=== PATIENT | male | born 1970 | race Caucasian/White ===

== ENCOUNTER 2016-06-21 21:17 | Inpatient (IN) | payer BC ==
[~2016-06-21] VITALS: Ht 175.3 cm; Wt 83.0 kg
[2016-06-21 22:08] LABS: BASOPHIL % 0.3 % (0-2); PLATELET COUNT 225 x10^3mcL (130-400); RED CELL DISTRIBUTION WIDTH 13.3 % (11.5-14.5)
[2016-06-21 22:27] LABS: CALCIUM 8.9 mg/dL (8.5-10.1); CARBON DIOXIDE 27.5 mmol/L (21-32); CHLORIDE SERUM 103 mmol/L (98-107); CREATININE SERUM 1.1 mg/dL (0.7-1.3); GFR1 > 60 mL/min; GLUCOSE SERUM 93 mg/dL (74-106); POTASSIUM SERUM 3.5 mmol/L (3.5-5.1); SODIUM SERUM 140 mmol/L (136-145)
[2016-06-21 22:29] LABS: ALBUMIN 4.4 g/dL (3.4-5.0); ALKALINE PHOSPHATASE 77 U/L (46-116); ALT/SGPT 27 U/L (16-63); AST/SGOT 22 U/L (15-37); BILIRUBIN TOTAL 0.53 mg/dL (0.20-1.00); TOTAL PROTEIN, SERUM 7.6 g/dL (6.4-8.2)
[2016-06-21 22:44] LABS: CREATINE KINASE 66 U/L (39-308)
[2016-06-21 22:46] LABS: CK-MB < 0.5 ng/mL (0-3.6)
[2016-06-21] MEDS ORDERED: XANAX0.5 MG PO (22:52)
[2016-06-22] VITALS (7 sets, daily range): BP systolic 102–133; BP diastolic 60–91
[2016-06-22 00:30] LABS: T3 TOTAL 1.38 ng/mL
[2016-06-22 01:03] LABS: FREE T4 1.08 ng/dL (0.76-1.46); FREE THYROXINE INDEX 2.6 ug/dL (1.4-4.5); T4(THYROXINE) 8.5 ug/dL (4.7-13.3)
[2016-06-22 01:45] LABS: CHOLESTEROL/HDL RATIO 3.7; MAGNESIUM 1.9 mg/dL (1.8-2.4)
[2016-06-22 15:10] LABS: microscopic required? NO
[2016-06-22 15:25] LABS: urine erythrocyte NEGATIVE (NEGATIVE)
[2016-06-22 16:33] LABS: AMPHETAMINE QUAL UR NONE DETECTED (NEG <=1000)
[2016-06-23 06:00] VITALS: BP 106/58
[2016-06-23 09:32] VITALS: BP 102/63
[2016-06-23 11:32] LABS: BASOPHIL % 0.3 % (0-2); PLATELET COUNT 190 x10^3mcL (130-400); RED CELL DISTRIBUTION WIDTH 13.1 % (11.5-14.5)
[2016-06-23 11:58] LABS: CALCIUM 8.7 mg/dL (8.5-10.1); CARBON DIOXIDE 30.5 mmol/L (21-32); CHLORIDE SERUM 109 mmol/L (98-107); CREATININE SERUM 0.9 mg/dL (0.7-1.3); GFR1 > 60 mL/min; GLUCOSE SERUM 89 mg/dL (74-106); PHOSPHOROUS 3.4 mg/dL (2.5-4.9); POTASSIUM SERUM 4.2 mmol/L (3.5-5.1); SODIUM SERUM 143 mmol/L (136-145)
[2016-06-23 14:34] LABS: MAGNESIUM 1.8 mg/dL (1.8-2.4)
[2016-06-23 15:30] VITALS: BP 106/64
[2016-06-23 17:32] VITALS: BP 101/57
[2016-06-23 22:31] VITALS: BP 104/62
[2016-06-24 06:46] LABS: CALCIUM 8.5 mg/dL (8.5-10.1); CARBON DIOXIDE 27.4 mmol/L (21-32); CHLORIDE SERUM 108 mmol/L (98-107); GFR1 > 60 mL/min; GLUCOSE SERUM 90 mg/dL (74-106); MAGNESIUM 1.8 mg/dL (1.8-2.4); PHOSPHOROUS 3.8 mg/dL (2.5-4.9); POTASSIUM SERUM 3.9 mmol/L (3.5-5.1); SODIUM SERUM 143 mmol/L (136-145)
[2016-06-24 06:56] LABS: BASOPHIL % 1.6 % (0-2); PLATELET COUNT 181 x10^3mcL (130-400); RED CELL DISTRIBUTION WIDTH 12.5 % (11.5-14.5)
[2016-06-24 07:08] VITALS: BP 113/71
[2016-06-24] MEDS ORDERED: ZES10 PO (09:47)
[2016-06-24] MEDS ORDERED: CEL20 PO (09:48)
[2016-06-24] MEDS ORDERED: MIN1 PO (09:48)
[2016-06-24] MEDS ORDERED: BACO TOP (09:48)
[2016-06-24] MEDS ORDERED: HIBICLENS118 ML TOP (09:48)
[2016-06-24] MEDS ORDERED: PRI20 PO (09:49)
[2016-06-24 10:00] VITALS: BP 119/74
[2016-06-24 10:49] VITALS: BP 119/74
== END 2016-06-24 11:34 | disposition home or self-care (01) | DRG 392 ==
LOC: ED 21:17 → MU 23:40 → DU 23:40 → MU 06-23 05:24
PROVIDERS: Emergency Medicine; Family Medicine; Internal Medicine Gastroenterology; ADMIT Family Medicine
PROC: 0DB68ZX Excision of Stomach, Via Natural or Artificial Opening Endoscopic, Diagnostic (ICD-10-PCS; principal; 2016-06-23 14:00)
PROC: 0DB58ZX Excision of Esophagus, Via Natural or Artificial Opening Endoscopic, Diagnostic (ICD-10-PCS; 2016-06-23 14:00)
DX: K21.9 Gastro-esophageal reflux disease without esophagitis (principal); E11.65 Type 2 diabetes mellitus with hyperglycemia; E11.51 Type 2 diabetes mellitus with diabetic peripheral angiopathy without gangrene; E78.5 Hyperlipidemia, unspecified; M94.0 Chondrocostal junction syndrome [Tietze]; F43.10 Post-traumatic stress disorder, unspecified; I10 Essential (primary) hypertension; Z53.29 Procedure and treatment not carried out because of patient's decision for other reasons; K29.70 Gastritis, unspecified, without bleeding; K44.9 Diaphragmatic hernia without obstruction or gangrene; Z22.322 Carrier or suspected carrier of Methicillin resistant Staphylococcus aureus; Z79.899 Other long term (current) drug therapy; Z87.820 Personal history of traumatic brain injury; Z88.1 Allergy status to other antibiotic agents
CPT/HCPCS: 43235; 80307; 83880; 84439; 90658; J1200; J1610; J2060; J2250; J2270; J2310; J3010; J3490; J7030; Q0092; Q0162

== ENCOUNTER 2018-10-30 14:54 | Inpatient (IN) | payer BC ==
[~2018-10-30] VITALS: Ht 175.3 cm; Wt 91.6 kg
[~2018-10-30 14:54] MED LIST: BACO TOP; CEL20 PO; HIBICLENS118 ML TOP; MIN1 PO; PRI20 PO; XANAX0.5 MG PO; ZES10 PO
[2018-10-30 14:58] VITALS: Ht 175.3 cm; Wt 91.6 kg
--- NOTE | 2018-10-30 15:01 | NUR ---
EKG IN PROGRESS.
--- NOTE | 2018-10-30 16:35 | NUR ---
DR KIM AT BEDSIDE FOR EVAL AT THIS TIME, APR RN AT BEDSIDE INFRASTRUCTURE SECURITY ARCHITECT.//APR RN
[2018-10-30 16:44] LABS: BASOPHIL % 0.5 % (0-2); PLATELET COUNT 222 x10^3mcL (130-400); RED CELL DISTRIBUTION WIDTH 13.7 % (11.5-14.5)
[2018-10-30 17:01] LABS: CALCIUM 9.7 mg/dL (8.5-10.1); CARBON DIOXIDE 31.6 mmol/L (21-32); CHLORIDE SERUM 107 mmol/L (98-107); CREATININE SERUM 0.9 mg/dL (0.7-1.3); GFR1 > 60 mL/min; GLUCOSE SERUM 95 mg/dL (74-106); POTASSIUM SERUM 4.3 mmol/L (3.5-5.1); SODIUM SERUM 144 mmol/L (136-145)
--- NOTE | 2018-10-30 17:01 | NUR ---
NITRO S/L EFFECTIVE AFTER 2 0.4MG. @1644 AND 1656. PT REPORTS CHEST PAIN 05/14. WILL CONTINUE TO MONITOR
[2018-10-30 17:06] LABS: ALBUMIN 3.9 g/dL (3.4-5.0); ALKALINE PHOSPHATASE 82 U/L (46-116); ALT/SGPT 37 U/L (16-63); AST/SGOT 20 U/L (15-37); BILIRUBIN TOTAL 0.2 mg/dL (0.20-1.00); CHOLESTEROL 172 mg/dL (<200); CHOLESTEROL/HDL RATIO 4.9; HDL CHOLESTEROL 35 mg/dL (40-60); LIPASE 147 IU/L (73-393); TOTAL PROTEIN, SERUM 7.1 g/dL (6.4-8.2)
[2018-10-30 17:07] LABS: TRIGLYCERIDES 206 mg/dL (<150)
[2018-10-30 17:08] LABS: FREE T4 0.69 ng/dL (0.76-1.46); FREE THYROXINE INDEX 1.8 ug/dL (1.4-4.5); T4(THYROXINE) 5.7 ug/dL (4.7-13.3)
[2018-10-30 17:41] LABS: microscopic required? NO
[2018-10-30 17:50] LABS: T3 TOTAL 1.09 ng/mL
[2018-10-30 17:58] LABS: UA SPECIFIC GRAVITY 1.015 (1.005-1.035); urine erythrocyte NEGATIVE (NEGATIVE)
--- NOTE | 2018-10-30 19:00 | NUR ---
3RD 0.4MG S/L NITRO EFFECTIVE.
--- NOTE | 2018-10-30 19:13 | NUR ---
REPORT GIVEN TO TRISTAN AVILA.
--- NOTE | 2018-10-30 19:14 | NUR ---
RECEIVED REPORT FROM DAY SHIFT NURSERAJENDRA. PATIENT IS AAOX4. APPEARS PALE IN COLOR, SKIN IS WARM AND DRY. STATES CHEST PAIN IS 2/10 MID STERNAL, RELIEF FROM 6/10 AFTER 3RD DOSE OF NITRO PER DAY SHIFT NURSE. PATIENT INSTRUCTED TO NOTIFY SOON POSSIBLE IF CHEST PAIN WORSENS. WILL CONTINUE TO MONITOR CLOSELY.
[2018-10-30] MEDS ORDERED: ZESTRIL20 MG PO (19:54)
--- NOTE | 2018-10-30 19:54 | NUR ---
TECH AT BEDSIDE TO COMPLETE EKG.
[2018-10-30] MEDS ORDERED: HYDROXYZINE50 M1 PO (19:55)
[2018-10-30 20:49] LABS: AMPHETAMINE QUAL UR NONE DETECTED (See below)
--- NOTE | 2018-10-30 21:29 | NUR ---
REPORT CALLED AND GIVEN TO AUSTIN GRANADOS ON MST.
[2018-10-30 22:05] VITALS: BP 116/69
--- NOTE | 2018-10-30 22:13 | NUR ---
RECEIVED PT FROM ER, PT ADMIT FOR CHEST PAIN, PT IS A/O X4, VERBAL RESPONSIVE, ABLE TO TELL WHAT HE NEEDS. LUNG SOUND CLEAR BILATERAL, NO COUGH, C/O MILD SOB PT IS ON 2L/MIN O2 VIA NC, PO2 96%, PT IS ON TELE 29, NSR, C/O MILD CHEST PAIN 2/10, RADIATE TO BACK AND JAW. BOWEL SOUND PRESENT ALL 4 QUADRANTS, NO DISTENTION, NO TENDER. PEDAL PULSE PRESENT BOTH FEET, NO EDEMA, IV AT RIGHT AC, NO LEAKING, NO INFILTRATION. ALL ADLS ASSIST, ALL NEED MET, CALL LIGHT IN REACH, WILL CONTINUE TO MONITOR.
--- NOTE | 2018-10-31 00:15 | NUR ---
PT REQUESTING BLANKET, DENIES PAIN AT THIS TIME, PT DENIES SOB, ON 2L NC, PT A/OX4 NO COMPLAINTS OF PARRISH OR DIZZINESS, SAFETY PRECAUTIONS IN PLACE, WILL CONTINUE TO MONITOR
--- NOTE | 2018-10-31 02:00 | NUR ---
PT RESTING WITH EYES CLOSED, NO ACUTE DISTRESS NOTED, NO SOB, RESPIRATIONS EVEN AND UNLABORED, SAFETY PRECAUTIONS IN PLACE, WILL CONTINUE TO MONITOR
--- NOTE | 2018-10-31 05:26 | NUR ---
PT RESTED COMFORTABLY THROUGH MOST OF THE NIGHT, PT DENIED CHEST PAIN SINCE ADMISSIOPN TO THE FLOOR, PT DENIED SOB BUT IS ON 2L NC FOR COMFORT, SAFETY PRECAUTIONS WERE MAINTAINED THROUGH SHIFT, ALL NEEDS ATTENDED TO WILL CONTINUE TO MONITOR AND ENDORSE CARE
[2018-10-31 05:44] VITALS: BP 103/62
[2018-10-31 07:06] LABS: CARBON DIOXIDE 28.7 mmol/L (21-32); CHLORIDE SERUM 109 mmol/L (98-107); GFR1 > 60 mL/min; GLUCOSE SERUM 101 mg/dL (74-106); POTASSIUM SERUM 4.1 mmol/L (3.5-5.1); SODIUM SERUM 145 mmol/L (136-145)
--- NOTE | 2018-10-31 07:15 | NUR ---
RECEIVED BEDSIDE REPORT FROM SHAMPOO ASSISTANT NURSE AT THIS TIME. PATIENT RESTING COMFORTABLY IN BED. NO APPARENT DISTRESS OR DISCOMFORT NOTED. 2L NC IN PLACE FOR COMFORT AND PATIENT TOLERATING WELL. BREATHING EVEN AND UNLABORED. NO RESPIRATORY DISTRESS NOTED. NO INDICATION OF CHEST PAIN AT THIS TIME. IV PATENT AND INTACT. ALL QUESTIONS AND CONCERNS ADDRESSED. ALL NEEDS ATTENDED TO. WILL CONTINUE TO MONITOR
[2018-10-31 07:48] LABS: BASOPHIL % 0.7 % (0-2); PLATELET COUNT 195 x10^3mcL (130-400); RED CELL DISTRIBUTION WIDTH 13.3 % (11.5-14.5)
[2018-10-31 10:15] VITALS: BP 104/71
--- NOTE | 2018-10-31 10:20 | NUR ---
ALL MORNING MEDICATIONS ADMINISTERED AT THIS TIME. PATIENT TOLERATED MEDICATIONS WELL. NO ADVERSE EFFECTS NOTED. ALL NEEDS ATTENDED TO. WILL CONTINUE TO MONITOR
--- NOTE | 2018-10-31 11:41 | NUR ---
PATIENT C/O 3/10 SHARP CHEST PAIN AT THIS TIME. MEDICATED WITH NORCO PRN. PATIENT TOLERATED WELL. DRS AWARE. ALL NEEDS ATTENDED TO. WILL CONTINUE TO MONITOR
[2018-10-31 12:45] VITALS: BP 109/70
--- NOTE | 2018-10-31 13:45 | NUR ---
PATIENT SITTING UP IN BED EATING LUNCH AT THIS TIME. PATIENT TOLERATING DIET WELL. NO APPARENT DISTRESS OR DSICOMFORT NOTED. ALL NEEDS ATTENDED TO. WILL CONTINUE TO MONITOR
--- NOTE | 2018-10-31 15:00 | NUR ---
DR SANDOVAL AT BEDSIDE REVIEWING POC WITH PATIENT AT THIS TIME. ALL QUESTIONS AND CONCERNS ADDRESSED. ALL NEEDS ATTENDED TO. WILL PROCEED ORDERED. WILL CONTINUE TO MONITOR
[2018-10-31 18:01] VITALS: BP 130/78
--- NOTE | 2018-10-31 18:32 | NUR ---
PATIENT STABLE TO BE DISCHARGED TO HOME. DISCHARGE INSTRUCTIONS GIVEN WELL EDUCATION. INSTRUCTED PATIENT ABOUT FOLLOW UP APPOINTMENT. PATIENT VERBALIZES UNDERSTANDING. IV REMOVED WITH CATH INTACT. ID BANDS REMOVED. TELE MONITOR REMOVED AND RETURNED TO HAND CANDLE MOLDER. ALL BELONGINGS WITH PATIENT.ALL QUESTIONS AND CONCERNS ADDRESSED. ALL NEEDS ATTENDED TO. PATIENT ESCORTED DOWN TO THE LOBBY AT THIS TIME
== END 2018-10-31 18:22 | disposition home or self-care (01) | DRG 880 ==
LOC: ED 14:54 → DU 20:39
PROVIDERS: Internal Medicine; Specialist; ADMIT General Practice
DX: F41.9 Anxiety disorder, unspecified (principal); I10 Essential (primary) hypertension; Z88.1 Allergy status to other antibiotic agents; F43.10 Post-traumatic stress disorder, unspecified; E78.5 Hyperlipidemia, unspecified; Z82.49 Family history of ischemic heart disease and other diseases of the circulatory system
CPT/HCPCS: 83880; 84439; G0378; J2270; J7030; Q0092

== ENCOUNTER 2019-10-03 15:14 | Inpatient (IN) | payer BC ==
[~2019-10-03] VITALS: Ht 175.3 cm; Wt 101.2 kg
[~2019-10-03 15:14] MED LIST changes: +HYDROXYZINE50 M1 PO; +ZESTRIL20 MG PO
[2019-10-03 15:21] VITALS: Ht 175.3 cm; Wt 101.2 kg
--- NOTE | 2019-10-03 15:30 | NUR ---
PT BIB [facility] FROM HOME AND PLACED IN BED, VS DONE AND MONITOR APPLIED BY LYDIA AVILA. PT AAOX4 WITH C/O 8/10 PRESSURE LIKE CP RADIATING TO LT ARM/ARMPIT WITH SHARP PAIN WITH NOTED ANXIETY, NAUSEA, AND SOB SINCE 11AM TODAY. PT DENIES ANY FEVER, RESP ILLNESS OR URINARY PROBLEMS AT THIS TIME. PT NOTED TO HAVE INCREASED BREATHING DUE TO ANXIETY/CP. PT ENCOURAGED TO TAKE SLOW BREATHS. EKG DONE AT BEDSIDE BY NOEL VIZCARRA.
--- NOTE | 2019-10-03 15:45 | NUR ---
PT NOTED WITH INCREASED ANXIETY AND HYPERVENTALATION. ATIVAN IVP GIVEN PER CHARLIE AND DR MEYER.
[2019-10-03 16:00] LABS: BASOPHIL % 0.3 % (0-2); PLATELET COUNT 234 x10^3mcL (130-400); RED CELL DISTRIBUTION WIDTH 12.9 % (11.5-14.5)
--- NOTE | 2019-10-03 16:10 | NUR ---
PT RESTING IN BED WITH NO SIGNS OF DISTRESS AT THIS TIME.
[2019-10-03 16:18] LABS: CALCIUM 9.8 mg/dL (8.5-10.1); CARBON DIOXIDE 22.6 mmol/L (21-32); CHLORIDE SERUM 104 mmol/L (98-107); CREATININE SERUM 1.2 mg/dL (0.7-1.3); GFR1 > 60 mL/min; GLUCOSE SERUM 105 mg/dL (74-106); POTASSIUM SERUM 3.6 mmol/L (3.5-5.1); SODIUM SERUM 140 mmol/L (136-145)
[2019-10-03 16:23] LABS: ALBUMIN 4.4 g/dL (3.4-5.0); ALKALINE PHOSPHATASE 93 U/L (46-116); ALT/SGPT 48 U/L (16-63); AST/SGOT 29 U/L (15-37); BILIRUBIN TOTAL 0.64 mg/dL (0.20-1.00); TOTAL PROTEIN, SERUM 7.6 g/dL (6.4-8.2)
--- NOTE | 2019-10-03 17:10 | NUR ---
PT RESTING IN BED WITH BREATHS EVEN AND UNLABORED.
[2019-10-03 17:35] LABS: CHOLESTEROL/HDL RATIO 4.8
--- NOTE | 2019-10-03 19:41 | NUR ---
PATIENT SLEEPING IN BED SNORING, NOTED CHEST RISE AND FALL, NO DISTRTESS NOTED AT THIS TIME, PATIENT VISBLE TO NURSES STATION, CALL LIGHT WITHIN REACH, WILL CONTINUE TO MONITOR.
--- NOTE | 2019-10-03 20:02 | NUR ---
NOTIFIED DR. BEGUM OF PATIENT VITAL SIGNS AND PULSE RANGING FROM 42-50 BPM, NO DISTRESS NOTED AT THIS TIME, NO ORDERS GIVEN, PER DR. BEGUM "IM, OK WITH THAT" WILL CONTINUE TO MONITOR.
--- NOTE | 2019-10-03 20:14 | NUR ---
REPORT GIVEN TO ARIEL AVILA, EXT. [phone], ALL QUESTIONS ADDRESSED.
--- NOTE | 2019-10-03 20:40 | NUR ---
RECEIVED PATIENT FROM ER, TRANSFER FROM [facility] TO BED, PT C/O DIZZINESS. A/O X4. NO ACUTE DISTRESS NOTED. PLACE TELE #21 SB HR 59 NOTED, IV TO LAC #20G INTACT AND SL, NO REDENESS NOTED. ORIENTED TO CALL LIGHT AND WITHIN REACH.
[2019-10-03 20:43] VITALS: BP 135/79
--- NOTE | 2019-10-03 21:00 | NUR ---
RECEIVED PT FROM BREANN AVILA. PT STATED HE JUST FEELS SLEEPY. DENIES CHEST PAIN AT THIS TIME. ORIENTED PT TO ROOM AND SURROUNDINGS. SIDE RAILS UP X2. WILL CONTINUE TO MONITOR.
--- NOTE | 2019-10-03 21:45 | NUR ---
ROUTINE MEDICATIONS ADMINISTERED AND TOLERATED WELL. NO ACUTE DISTRESS NOTED. BREATHING IS EVEN AND UNLABORED ON RA. NO RESP DISTRESS NOTED. C/O /10 CHEST PAIN. WILL MEDICATE ACCORDINGLY PER MAR ORDER.
--- NOTE | 2019-10-03 22:01 | NUR ---
ATTEMPTED TO GIVE NORCO, PT WAS ASLEEP. WILL CONTINUE TO MONITOR.
--- NOTE | 2019-10-03 23:14 | NUR ---
SPOKE WITH AND DAUGHTER ABOUT PTS POC. ALL QUESTIONS AND CONCERNS ADDRESSED. [phone]
--- NOTE | 2019-10-04 04:06 | NUR ---
PT RESTING COMFORTABLY. NO ACUTE DISTRESS NOTED. WILL CONTINUE TO MONITOR.
--- NOTE | 2019-10-04 06:21 | NUR ---
CONTACT AND DROPLET PRECAUTIONS MAINTAINED. RESTRAINT PROTOCOLS FOLLOWED. ALL NEEDS ASSESSED AND ATTENDED TO. SAO2 READING 94% ON 50L HIGH FLOW FIO2 100%. WILL CONTINUE TO MONITOR AND ENDORSE CARE TO DAY SHIFT NURSE.
--- NOTE | 2019-10-04 06:23 | NUR ---
PT RESTED COMFORTABLY THROUGHOUT THE NIGHT WITH NO ACUTE EVENTS OCCURRING DURING THE SHIFT. COMFORT AND SAFETY MEASURES MAINTAINED. ALL NEEDS ASSESSED AND ATTENDED TO. WILL CONTINUE TO MONITOR AND ENDORSE CARE TO DAY SHIFT NURSE.
--- NOTE | 2019-10-04 06:56 | NUR ---
PT C/O 5/10 CHEST PAIN. ADMINSITERED NORCO PER MAR ORDER.
[2019-10-04 07:02] LABS: BASOPHIL % 0.3 % (0-2); PLATELET COUNT 187 x10^3mcL (130-400); RED CELL DISTRIBUTION WIDTH 13.2 % (11.5-14.5)
[2019-10-04 07:11] LABS: CALCIUM 8.8 mg/dL (8.5-10.1); CARBON DIOXIDE 27.6 mmol/L (21-32); CHLORIDE SERUM 106 mmol/L (98-107); CREATININE SERUM 1.2 mg/dL (0.7-1.3); GFR1 > 60 mL/min; GLUCOSE SERUM 93 mg/dL (74-106); POTASSIUM SERUM 3.7 mmol/L (3.5-5.1); SODIUM SERUM 143 mmol/L (136-145)
[2019-10-04 08:57] VITALS: BP 125/81
[2019-10-04 12:38] VITALS: BP 112/63
[2019-10-04 15:29] VITALS: BP 125/81
--- NOTE | 2019-10-04 15:52 | NUR ---
SEEN BY THE RELAY ASSOCIATE, DR SANDOVAL, PATIENT IS DISCHARGED TO HOME. HEIDI CALLED AT THE NUMBER [phone], VOICE MAIL LEFT. AWAITING CALL BACK.
--- NOTE | 2019-10-04 16:15 | NUR ---
DISCHARGE PAPER EXPLAINED, INSISTED HE HAVE RX FOR ANXIETY, WHICH ATIVAN, 1MG PO ( ENOUGH TO LAST UNTIL NEXT APPOINTMENT 10/22/2019, ), REFERRED HIM TO HIS PRIMARY CARE DR AT [place]. HE IS OKAYED WITH THE EXPLANATIONS.
== END 2019-10-04 17:04 | disposition home or self-care (01) | DRG 313 ==
LOC: ED 15:14 → DU 16:52
PROVIDERS: Emergency Medicine; ADMIT Internal Medicine; ATTEND Internal Medicine
DX: R07.89 Other chest pain (principal); I10 Essential (primary) hypertension; I25.10 Atherosclerotic heart disease of native coronary artery without angina pectoris; F41.9 Anxiety disorder, unspecified; R09.1 Pleurisy; Z88.8 Allergy status to other drugs, medicaments and biological substances; Z82.49 Family history of ischemic heart disease and other diseases of the circulatory system; F43.10 Post-traumatic stress disorder, unspecified
CPT/HCPCS: G0378; J1885; J2060; Q0092